=== PATIENT | female | born 1955 | race Caucasian/White ===

== ENCOUNTER 2018-10-06 15:03 | Emergency (ER) | payer MEDICARE, MEDICAID ==
[2018-10-06] MEDS ORDERED: Acetaminophen 500 MG TAB PO ONE (15:15)
[2018-10-06] MEDS ORDERED: Acetaminophen 500 MG TAB ONE (15:27)
--- NOTE | 2018-10-06 15:49 | ED Physician Chart ---
ED Chief Complaint/HPI - Patient Information Date Seen:: 10/06/18 Time Seen:: 15:15 Chief Complaint:: infection of the left hand History of Present Illness:: THIS IS A 63 YO HOMELESS FEMALE WITH CONCERNED ABOUT HER SWOLLEN LEFT HAND FROM A SPIDER BITE AND AN OLD DOG BITE ON THE SAME HAND. SHE ADMITS TO FEVER AND SWELLING WITH PAIN IN THE LEFT ARM AND PAIN. Allergies:: Allergies Allergy/AdvReac Type Severity Reaction Status Date / Time No Known Allergies Allergy Verified 10/06/18 15:24 Vitals:: Vital Signs - 8 hr 10/06/18 15:09 Temp 100.9 F HR 112 RR 18 BP 127/77 O2 Sat % 96 Historian:: Patient Review:: Nurse's Note Reviewed ED Review of Systems - Review of Systems General/Constitutional: Fever, No chills, No weight loss, No weakness, No diaphoresis, No edema, No loss of appetite Skin: Skin lesions, No rash, No bruising Head: Headache, No light-headedness Eyes: No loss of vision, No pain, No diplopia ENT: No earache, No nasal drainage, No sore throat, No tinnitus Neck: No neck pain, No swelling, No thyromegaly, No stiffness, No mass noted Cardio Vascular: No chest pain, No palpitations, No PND, No orthopnea, No edema Pulmonary: No SOB, No cough, No sputum, No wheezing GI: No nausea, No vomiting, No diarrhea, No pain, No melena, No hematochezia, No constipation, No hematemesis G/U: No dysuria, No frequency, No hematuria Musculoskeletal: No bone or joint pain, No back pain, No muscle pain, Other ( SWOLLEN LEFT HAND AND ARM PAIN) Endocrine: No polyuria, No polydipsia Psychiatric: No prior psych history, No depression, No anxiety, No suicidal ideation Hematopoietic: No bruising, No lymphadenopathy Allergic/Immuno: No urticaria, No angioedema Neurological: No syncope, No focal symptoms, No weakness, No paresthesia, No headache, No seizure, No dizziness, No confusion, No vertigo ED Past Medical History - Past Medical History Obtainable: Yes Past Medical History: Other (CHRON'S DISEASE ) Social History: Smoker, Alcohol, Illicit Drug Use, Homeless Surgical History: other (COLON SURGERY) Psychiatricy History: None Medication: Reviewed Family Medical History - Family Member Mother History Unknown: Yes Hx Family Diabetes: Yes ED Physical Exam - Physical Examination General/Constitutional: Awake, Well-developed, well-nourished, Alert, No distress, GCS 15, Non-toxic appearing, Ambulatory Head: Atraumatic Eyes: Lids, conjuctiva normal, PERRL, EOMI Skin: Nl inspection, No rash, No skin lesions, No ecchymosis, Well hydrated, No lymphadenopathy ENMT: External ears, nose nl, Nasal exam nl, Lips, teeth, gums nl Neck: Nontender, Full ROM w/o pain, No JVD, No nuchal rigidity, No bruit, No mass, No stridor Respiratory: Nl effort/Exclusion, Clear to Auscultation, No Wheeze/Rhonchi/Rales Cardio Vascular: RRR, No murmur, gallop, rubs, NL S1 S2 GI: No tenderness/rebounding/guarding, No organomegaly, No hernia, Normal BS's, Nondistended, No mass/bruits, No McBurney tenderness : No CVA tenderness Extremities: No tenderness or effusion (THERE IS REDNESS, TENDERNESS AND SWELLING OF THE LEFT HAND), Full ROM, normal strength in all extremities, Normal digits & nails Neuro/Psych: Alert/oriented, DTR's symmetric, Normal sensory exam, Normal motor strength, Judgement/insight normal, Mood normal, Normal gait, No focal deficits Misc: Normal back, No paraspinal tenderness ED Labs/Radiology/EKG Results - Lab Results Results: Abnormal Lab Results 10/06/18 10/06/18 10/06/18 15:36 15:36 15:36 WBC 11.3 H RBC 4.77 Hgb 14.9 Hct 44.5 MCV 93.4 MCH 31.2 H MCHC Differential 33.4 RDW 13.1 Plt Count 261 MPV 7.6 Neutrophils % 83.7 H Lymphocytes % 11.2 L Monocytes % 4.5 Eosinophils % 0.5 Basophils % 0.1 PT 10.3 INR 0.99 Sodium 136 Potassium 3.8 Chloride 100 Carbon Dioxide 27.3 Anion Gap 12.5 BUN 22 Creatinine 0.7 Est GFR ( Amer) > 60.0 Est GFR (Non-Af Amer) > 60.0 BUN/Creatinine Ratio 31.4 Glucose 96 Calcium 9.6 Total Bilirubin 1.5 H AST 12 L ALT 14 Alkaline Phosphatase 100 Troponin I Total Protein 7.6 Albumin 4.1 Globulin 3.5 Albumin/Globulin Ratio 1.2 10/06/18 15:36 WBC RBC Hgb Hct MCV MCH MCHC Differential RDW Plt Count MPV Neutrophils % Lymphocytes % Monocytes % Eosinophils % Basophils % PT INR Sodium Potassium Chloride Carbon Dioxide Anion Gap BUN Creatinine Est GFR ( Amer) Est GFR (Non-Af Amer) BUN/Creatinine Ratio Glucose Calcium Total Bilirubin AST ALT Alkaline Phosphatase Troponin I 0.01 Total Protein Albumin Globulin Albumin/Globulin Ratio ED Assessment - Assessment General Assessment: CELLULITIS OF THE LEFT HAND ED Septic Shock - . Is Septic Shock (SBP<90, OR Lactate>4 mmol\L) present?: No - <6hrs of presentation: Vital Signs: Vital Signs - 8 hr 10/06/18 15:09 Temp 100.9 F HR 112 RR 18 BP 127/77 O2 Sat % 96 ED Reassessment (Disposition) - Diagnosis Diagnosis:: cellulitis of the left hand - Aftercare/Follow up Instructions Aftercare/Follow-Up Instructions:: Counseled pt regarding lab results/diagnosis & need follow up, Refer to Discharge Instructions, Counseled pt & family regarding lab results/diagnosis & need follow up Notes:: the patient refused to stay in the hospital for the infection of her left hand. - Patient Disposition Discharge/Transfer:: Home Condition at Disposition:: Stable
[2018-10-06] MEDS ORDERED: Sodium Chloride 0.9% 1,000 ML IV ONE (15:54)
[2018-10-06 15:56] LABS: ANION GAP 12.5 (7.0-16.0); BUN - UREA NITROGEN 22 mg/dL (7-25); CARBON DIOXIDE 27.3 mEq/L (21.0-31.0); CHLORIDE 100 mEq/L (98-107); CREATININE - SERUM 0.7 mg/dL (0.6-1.2); GFR AFRICAN-AMERICAN > 60.0 ml/min (>90); GFR NON AFRICAN-AMERICAN > 60.0 ml/min; GLUCOSE 96 mg/dL (70-105); POTASSIUM SERUM 3.8 mEq/L (3.5-5.1); SODIUM SERUM 136 mEq/L (136-145)
[2018-10-06 15:57] LABS: ALB/GLOB RATIO 1.2 (1.0-1.8); ALBUMIN 4.1 gm/dL (3.7-5.3); ALKALINE PHOSPHATASE 100 U/L (34-104); BILIRUBIN,TOTAL 1.5 mg/dL (0.3-1.0); CALCIUM SERUM 9.6 mg/dL (8.6-10.3); INR 0.99 (0.5-1.4); PROTHROMBIN TIME (TEST) 10.3 SECONDS (9.5-11.5); SGOT 12 U/L (13-39); SGPT/ALT 14 U/L (7-52); TOTAL PROTEIN,SERUM 7.6 gm/dL (6.0-8.3)
[2018-10-06 16:00] LABS: % BASOPHILS 0.1 % (0.0-2.0); % EOSINOPHILS 0.5 % (0.0-5.0); % LYMPHOCYTES 11.2 % (20.0-50.0); % MONOCYTES 4.5 % (2.0-10.0); % NEUTROPHILS 83.7 % (40.0-80.0); EOSINOPHILE ABSOLUTE 0.1 Th/cmm (0.1-0.4); HEMATOCRIT 44.5 % (41.0-60); HEMOGLOBIN 14.9 gm/dL (12-16); LYMPHOCYTE ABSOLUTE 1.3 Th/cmm (1.5-3.0); MEAN CELL VOLUME 93.4 fl (81-100); MEAN CORPUSCULAR HEMOGLOBIN 31.2 pg (27.0-31.0); MEAN CORPUSCULAR HGB CONC 33.4 pg (28.0-36.0); MEAN PLATELET VOLUME 7.6 fl; MONOCYTE ABSOLUTE 0.5 Th/cmm (0.3-1.0); NEUTROPHILE ABSOLUTE 9.4 Th/cmm (1.8-8.0); PLATELET COUNT 261 Th/cmm (150-400); RED BLOOD COUNT 4.77 Mil/cmm (3.80-5.20); RED CELL DISTRIBUTION WIDTH 13.1 % (11.5-20.0); WHITE BLOOD COUNT 11.3 Th/cmm (4.8-10.8)
[2018-10-06 16:56] VITALS: BP 114/72
== END 2018-10-06 16:59 | disposition home or self-care (01) ==
LOC: ER 15:03
DX: L03.114 Cellulitis of left upper limb (principal); F17.200 Nicotine dependence, unspecified, uncomplicated; Z59.0 Homelessness
CPT/HCPCS: 99283; 96374; 84484; 36415; 84443; 85025; 85610; 80053; 87040 ×2; J0696; J7030; Z7502; Z7610